=== PATIENT | female | born 1960 | race Caucasian/White ===

== ENCOUNTER → 2017-02-05 | Outpatient (CLI) | payer MEDICARE, MEDICAID ==
[~2017-02-05] MED LIST: ABILIFY5 MG PO; ACTOPLUS MET 501 TAB PO; ATORVASTATIN CA20 M1 PO; BACTRIM DS 8001 TA1 PO; BACTRIM DS 8001 TAB PO; BIAXIN500 MG PO; CALCIUM 500 + D1 TA2 PO; CIPRO 500MG TA500 MG PO; CITALOPRAM40 MG PO; COLACE GENERIC100 MG PO; CRESTOR20 MG PO; CRESTOR5 MG PO; D3PLUS1 CAP PO; DIAZEPAM5 M1 PO; DICLOFENAC 50MG50 MG PO; DITROPAN 5MG TAB5 MG PO; FAMOTIDINE 20MG20 MG PO; FLAGYL 500MG.500 MG PO; FLAGYL500 MG PO; FLEXERIL10 MG PO; FLUOXETINE20 M2 PO; GABAPENTIN800 MG PO; GLIMEPIRIDE2 MG PO; GLUCOSAMINE CHO1 CAP PO; HYDROCODONE-APA1 TA1 PO; HYDROCODONE-APA1 TA2 PO; HYDROCODONE/ACE1 TA5 PO; HYDROCODONE1 TABLET PO; JALYN 0.5 MG-0.1 CAP PO; JANUMET 500 MG-1 TAB PO; JANUVIA50 MG PO; KEFLEX 500MG.500 MG PO; KEFLEX500 M1 PO; LEVOTHROID0.05 MG PO; LEVOTHYROXINE0.05 MG PO; LITHIUM CARBON450 MG PO; LORTAB 5/3251 TAB PO; LORTAB 5/500 501 TAB PO; LORTAB 7.5/5001 TA1 PO; LOSARTAN POTAS100 MG PO; MACROBID 100MG100 M1 PO; MAGNESIUM CITRA1 BOT PO; MECLIZINE25 MG PO; MEDROL 4MG. DOSE4 MG PO; METOCLOPRAMIDE H5 M2 PO; MICARDIS40 MG PO; MINOCYCLINE 10100 MG PO; MOTRIN800 MG PO; NAPROSYN 500MG500 MG PO; NAPROSYN500 M1 PO; NASONEX0.05 MG/AC NS; OMEPRAZOLE20 MG PO; PERCOCET 5/3251 EACH PO; PHENERGAN 25MG.25 M1 PO; PRAVASTATIN40 MG PO; PREDNISONE 10MG10 MG PO; PREDNISONE 20MG20 MG PO; PREDNISONE50 MG PO; PROPRANOLOL10 MG PO; PROVENTIL0.09 MG/AC IH; PYRIDIATE200 MG PO; PYRIDIUM 200MG200 MG PO; ROBAXIN-750750 MG PO; SEPTRA DS 800 M1 TAB PO; SKELAXIN 800MG800 MG PO; ST. JOSEPH81 M1 PO; TRAMADOL 50MG T50 M1 PO; TRAMADOL 50MG T50 MG PO; Tramadol HCl50 MG PO; ULTRACET 325 MG1 TAB PO; ULTRAM50 MG PO; VALTREX500 MG PO; VICODIN 5/500 T1 TAB PO; ZANTAC 150150 MG PO; ZANTAC150 MG PO; ZOFRAN4 MG PO; [UNRECOGNIZED DRUG - OTHER]
[2017-02-05 10:09] LABS: BUN 22 mg/dL (7-18)
[2017-02-05 10:11] LABS: GFR (ESTIMATED) 47 ML/MIN (59-)
--- NOTE | 2017-02-06 06:56 | RADIOLOGY REPORT PS360 ---
CTA-CHEST HISTORY: Follow-up thoracic aortic aneurysm with endograft ANEURYSM OF THORACIC AORTA ORDERING PHYSICIAN: Jean Sotelo MD PATIENT AGE: 56 years TECHNIQUE: Helical acquisition obtained following the bolus administration of 100 mL of Isovue 370 followed by a saline bolus. Axial, sagittal, and coronal reformatted images are generated and reviewed. COMPARISON: 10/03/2015 FINDINGS: There is an occluded graft in the left supraclavicular region similar to the previous exam. There is an stent graft present within the aortic arch and proximal descending thoracic aorta as before with continued regression of the intramural thrombus. There is mild dilatation of the ascending aorta measuring up to 4.2 cm not significantly changed. There is no evidence of dissection. 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 This may represent a graft as well. There is reconstitution of the left subclavian artery proximal to the vertebral artery origin. No evidence of aortic dissection. No evidence of central pulmonary embolus. No mediastinal or hilar mass. No change 8 mm nodule in the left perihilar region. No new nodules evident. There are some minimal fibrotic change in the lingula and right middle lobe. There is mild hyperinflation with attenuation of the peripheral pulmonary vessels consistent with obstructive chronic bronchitis. No acute bony anomalies. Mild adjacent change thoracic spine. Moderate tortuosity of the descending thoracic aorta. Upper abdominal images are unremarkable. IMPRESSION: 1. Stable CT appearance of the thoracic aortic stent graft with further regression of the intramural thrombus in the thoracic aorta. No change mild dilatation of the ascending aorta at 4.2 cm. No evidence of graft leak. 2. Other vascular findings as described above which are nonsignificant change. 3. No change 8 mm left perihilar nodule. PULMONARY ARTERIES:No pulmonary embolus evident. AORTA:No acute finding. No thoracic aortic aneurysm or dissection evident LUNGS:Unremarkable. No mass or consolidation. PLEURAL SPACES:No significant effusion. No evidence of pneumothorax. HEART:Unremarkable. Normal heart size. No significant pericardial effusion. MEDIASTINAL AND HILAR STRUCTURES:No mediastinal or hilar mass evident. No dominant adenopathy. BONY STRUCTURES:No acute bony abnormalities apparent LYMPH NODES:No enlarged lymph nodes evident UPPER ABDOMEN:Unremarkable IMPRESSION:
== END ==
LOC: RAD 09:42
PROVIDERS: Family Medicine
DX: I71.2 Thoracic aortic aneurysm, without rupture (principal); E11.9 Type 2 diabetes mellitus without complications
CPT/HCPCS: Q9967